=== PATIENT | male | born 1960 | race Two or more races ===

== ENCOUNTER 2021-04-02 11:30 | Inpatient (IN) | payer OTHER ==
[~2021-04-02] VITALS: Ht 175.3 cm; Wt 81.2 kg
[2021-04-02] MEDS ORDERED: COZAAR100 MG PO (14:19)
[2021-04-05] MEDS ORDERED: BUSPIRONE HCL10 MG (09:02)
[2021-04-05] MEDS ORDERED: AMLODIPINE BESYL5 MG (09:02)
[2021-04-05] MEDS ORDERED: SULINDAC200 MG (09:02)
[2021-04-07] MEDS ORDERED: HYOSCYAMINE0.125 M1 SL (13:34)
[2021-04-07] MEDS ORDERED: OXYC1TAB9 PO (13:34)
== END 2021-04-07 14:16 | disposition home or self-care (01) | DRG 331 ==
LOC: SURH 04-05 07:00 → O/R 04-05 07:21 → SURG 04-05 07:21 → SURH 04-05 11:30 → SURG 04-05 13:03
PROVIDERS: ADMIT Surgery; ATTEND Surgery
PROC: 0DTP4ZZ Resection of Rectum, Percutaneous Endoscopic Approach (ICD-10-PCS; 2021-04-05)
PROC: 0DBN4ZZ Excision of Sigmoid Colon, Percutaneous Endoscopic Approach (ICD-10-PCS; principal; 2021-04-05 07:00)
DX: C19 Malignant neoplasm of rectosigmoid junction (principal); D12.7 Benign neoplasm of rectosigmoid junction; F41.8 Other specified anxiety disorders